=== PATIENT | female | born 1995 | race Caucasian/White ===

== ENCOUNTER 2018-08-11 04:21 | Inpatient (IN) | payer OTHER ==
[~2018-08-11] VITALS: Ht 167.6 cm; Wt 56.2 kg
--- NOTE | ~2018-08-11 | O ---
[facility] [place] [address] OPERATIVE REPORT Name: MAJO ADAMS Room #: 454-P ADM IN M.R.#: [id number] Admission: 08/11/18 ������������������ Attend Phys: Long Gonzalez MD Discharge: ������������������ Date of : [birth year] Report #: [id number] THIS REPORT FOR: //name// CC: Long Santos DATE OF SERVICE: 08/11/2018 PREOPERATIVE DIAGNOSIS: Acute appendicitis. POSTOPERATIVE DIAGNOSIS: Acute appendicitis. OPERATIVE PROCEDURE DONE: Laparoscopic appendectomy. SURGEON: Chirag Moser MD INDICATIONS FOR PROCEDURE: The patient is a 23-year-old female who presented with complaints of 1-day history of right lower quadrant pain. Clinical exam was suggestive of acute appendicitis. A CT scan that was done showed a possible abscess with features of possible perforated appendicitis. DESCRIPTION OF PROCEDURE: After explaining to the patient in detail an informed consent was obtained. The patient was identified in the preoperative holding area. The patient was transferred to the operating room and placed in supine position. Sequential compressive devices were placed for DVT prophylaxis. Appropriate preoperative antibiotics were given. After induction of general anesthesia, the abdomen was prepped and draped in a sterile fashion. Through a left upper quadrant stab incision and using the Veress needle technique pneumoperitoneum was created. Thereafter, I jose alfredo a 1 cm incision on the left flank and using the Optiview technique a 5 mm trocar was introduced through a 2 cm infraumbilical incision, another 12 mm trocar was placed through a suprapubic incision measuring approximately 1 cm and 3 cm above the pubic symphysis another 5 mm trocar was placed. The patient was noted to have approximately about 25-30 mL of serous possibly infected fluid in the pelvis close to the tip of the appendix. There was no abscess that was noted. The appendix appeared mildly inflamed. The mesoappendix was then divided using a MARIZA white load stapler. The appendix was divided using a MARIZA white load stapler at the base. The appendix was then retrieved. Sterile saline irrigation was given after hemostasis was ensured. The abdomen was then desufflated. Incisions were closed with 4-0 Monocryl. Dermabond was applied. The patient was stable at the end of the procedure. The patient was awoken from anesthesia and was transferred to the recovery room in stable condition. ESTIMATED BLOOD LOSS: Minimal. CONDITION OF THE PATIENT: Stable. [address] [address] OPERATIVE REPORT Name: MAJO ADAMS Room #: 454-P [facility] IN M.R.#: [id number] Admission: 08/11/18 ������������������ Attend Phys: Long Gonzalez MD Discharge: ������������������ Date of : [birth year] Report #: [id number] FLUIDS GIVEN: Per anesthesia notes. SPECIMEN SENT: Appendix. COMPLICATIONS: None. ANESTHESIA: General anesthesia. ��������������������������������������������� ���������������������������������������� By: ��������������������������������������������� 1719 1745 Chirag Moser MD /nt
[~2018-08-11 04:21] MED LIST: BACTRIM DS TAB1 EACH PO; BENTYL20 MG PO; CARBAMAZEPINE200 M3; CIPROFLOXACIN500 M1 PO; CLEOCIN HCL300 MG PO; FLEXERIL PO; HYDROXYZINE HCL25 M1; LOXAPINE10 MG PO; MISC; NAPROSYN500 MG PO; NOHOMEMEDICATIONS; PREDNISONE 10 M10 M1; VENTOLIN17 GM; VICODIN 5-5001 EACH PO
[2018-08-11 04:22] VITALS: BP 200/144
[2018-08-11 05:27] LABS: URINE BILIRUBIN NEGATIVE (Negative); URINE BLOOD TRACE (Negative); URINE CLARITY SL CLOUDY; URINE COLOR YELLOW; URINE GLUCOSE-RANDOM* NEGATIVE (Negative); URINE KETONES NEGATIVE (Negative); URINE LEUKOCYTES-REFLEX NEGATIVE (Negative); URINE NITRITE-REFLEX NEGATIVE (Negative); URINE PROTEIN (DIPSTICK) NEGATIVE (Negative); URINE UROBILINOGEN 0.2 E.U./dl (0.2-1.0)
[2018-08-11 05:27] LABS: HEMATOCRIT 42.1 % (37.0-47.0); HEMOGLOBIN 14.5 gm/dL (12.0-15.0); MCH 30.7 pg (26.0-34.0); MCHC 34.4 g/dL (28.0-37.0); MCV 89.1 fL (80.0-100.0); PLATELET COUNT 261 thou/uL (150-400); RBC 4.72 mil/uL (4.20-5.00); RDW 13.2 % (10.5-14.5); WBC 23.9 thou/uL (4.0-11.0)
[2018-08-11 05:35] LABS: CALCIUM 9.1 mg/dL (8.5-10.1); CREATININE 0.9 mg/dL (0.6-1.0); POTASSIUM 3.6 mmol/L (3.5-5.1)
[2018-08-11 05:42] LABS: ALBUMIN 4.1 g/dL (3.4-5.0); TOTAL BILIRUBIN 0.7 mg/dL (<0.1-1.0); TOTAL PROTEIN 6.9 g/dL (6.4-8.2)
[2018-08-11 06:02] LABS: PLATELET ESTIMATE NORMAL
[2018-08-11 07:54] LABS: PROTIME 10.4 Seconds (9.3-11.4)
[2018-08-11 08:11] VITALS: BP 89/56
[2018-08-11 08:15] VITALS: BP 88/37
[2018-08-11 10:00] VITALS: BP 96/47
[2018-08-11 16:40] VITALS: BP 102/57
--- NOTE | 2018-08-11 18:33 | NUR ---
PT A&OX4, VSS, PAIN IN RLQ OF ABDOMEN. PT HAD APPENDECTOMY COMPLETED TODAY. NO SIGNS OF DISTRESS. FAMILY AT BEDSIDE. LAP SITES C/D/I. WILL CONTINUE TO MONITOR
[2018-08-11 20:20] VITALS: BP 101/66
--- NOTE | 2018-08-12 04:23 | NUR ---
Pt. rested quietly at intervals during the night when checked on during frequent rounds. She was given pain meds (see emar) for c/o abdominal pain with some relief noted. Lapsites to abdomen are dry and intact.
[2018-08-12 04:25] VITALS: BP 102/62
[2018-08-12 05:52] LABS: HEMATOCRIT 37.6 % (37.0-47.0); HEMOGLOBIN 12.6 gm/dL (12.0-15.0); MCH 30.5 pg (26.0-34.0); MCHC 33.6 g/dL (28.0-37.0); RBC 4.13 mil/uL (4.20-5.00); RDW 13.3 % (10.5-14.5); WBC 11.5 thou/uL (4.0-11.0)
[2018-08-12 06:04] LABS: CALCIUM 8.7 mg/dL (8.5-10.1); CREATININE 0.7 mg/dL (0.6-1.0); MAGNESIUM 1.9 mg/dL (1.8-2.4); POTASSIUM 3.7 mmol/L (3.5-5.1)
[2018-08-12 07:56] VITALS: BP 105/72
[2018-08-12] MEDS ORDERED: COLACE100 MG PO (13:27)
[2018-08-12] MEDS ORDERED: NORCO 5-325 TA1 EACH PO (13:27)
[2018-08-12 15:36] VITALS: BP 105/72
--- NOTE | 2018-08-12 16:40 | NUR ---
Received awake on bed. Due medications given as prescribed. Pt complained of pain and headache, Dr. Haile informed- due medications given as prescribed. With IVF at Left upper arm, IVF infusing well. Pt with episodes of tachycardia last night as verybalized by the patient and bradycardia this AM- Dr Haile aware, to do EKG- done, Dr Haile informed- Normal SR. Patient seen by Dr. Haile- to discharge patient today. Discharge instructions, prescription and medication care notes given to patient. IVF discontinued. Pt asked for note for 1 week rest as pt verbalized that a doctor told her that she will have doctor's note- called Dr Haile, to ask surgeon to do note, called Dr Moser's office re: note for work.
--- NOTE | 2018-08-13 09:02 | EKG ---
[address] [place] [address] ELECTROCARDIOGRAM REPORT Name: MAJO ADAMS Room #: 454- DIS IN M.R.#: [id number] ������������������ Admission: 08/11/18 ������������������ Attend Phys: Long Gonzalez MD Discharge: 08/12/18 ������������������ Date of : [birth year] Report #: [id number] ����������������������������������������������������������������� [id number] THIS REPORT FOR: //name// [facility] Test Date: 2018-08-12 Test Time: 11:25:44 Pat Name: MAJO ADAMS Department: Room: [facility] Gender: F [employer] Operator: Shad EGAN : 1995 Requested By: Renny Haile Order Number: [id number] MD: Dilip Coelho Measurements Intervals Machias Rate: 50 P: -22 VA: 126 QRS: 59 QRSD: 99 T: 59 QT: 433 QTc: 395 Interpretive Statements Sinus bradycardia Otherwise normal tracing No previous ECG available for comparison Electronically Signed On 08-13-2018 9:02:02 CDT by Dilip Coelho [email or web address] ��������������������������������������������� <ELECTRONICALLY SIGNED> ���������������������������������������� By: Dilip Coelho MD, [facility] ��������������������������������������������� 08/13/18 09 D: [id number] Dilip Coelho MD, FACC /EPI
--- NOTE | 2018-08-14 17:06 | PATH ---
[facility] [place] [address] [address] PATHOLOGY RPT PROCEDURE Name: MAJO MARTEL Room #: 454-P [facility] IN M.R.#: [id number] ������������������ Admission: 08/11/18 ������������������ Date of : [birth year] Discharge: 08/12/18 Report #: [id number] Path Case #: [id number] [facility] Accession Number: [id number] . 01 Material submitted: . appendix - APPENDIX . 01 Clinical history: . Appendicitis . 02 Diagnosis: Appendix, appendectomy: - Marked acute appendicitis along with acute serositis. (IUV:indio; 08/14/2018) QMS/08/14/2018 . 02 Electronically signed: . Vera Blanton MD, Pathologist NPI- [id number] . 01 Gross description: . The specimen is received in formalin, labeled "Majo Martel, appendix" and consists of an appendix measuring 5.0 cm in length and up to 0.5 cm in diameter with mesoappendix lining the entire specimen measuring up to 1.0 cm thick. The margin is closed with a line of sheldon and inked black. The serosa is gary-brown with focal adhesions. Sectioning reveals a pinpoint lumen and no mucosal lesions. The appendix is entirely submitted in A1-A2. (SDY; 08/13/2018) SYU/SYU . 02 Pathologist provided ICD-10: K35.80, K65.8 . 02 CPT . 640677 Specimen Comment: A courtesy copy of this report has been sent to Specimen Comment: [phone], , . Specimen Comment: Report sent to ,DR KIRKLAND / DR FLORIAN Performed at: [address], [place] [id number] MD Michael Jordan MD Phone: [phone] Performed at: [address] [id number] MD Vera Blanton MD Phone: [phone]
== END 2018-08-12 17:35 | disposition home or self-care (01) | DRG 340 ==
LOC: ER 04:21 → EROBS 07:28 → 4W 07:28
PROVIDERS: Emergency Medicine; Surgery; ADMIT Internal Medicine
PROC: 0DTJ4ZZ Resection of Appendix, Percutaneous Endoscopic Approach (ICD-10-PCS; principal; 2018-08-11)
DX: K35.21 Acute appendicitis with generalized peritonitis, with abscess (principal); F17.210 Nicotine dependence, cigarettes, uncomplicated; Z88.0 Allergy status to penicillin; Z79.899 Other long term (current) drug therapy
CPT/HCPCS: 10047; 50010; 50101; 50411; 50555; 50558; 50739; 50740; 51489; 51975; 52265; 52266; 53310; 54118; 56462; 56525; 56526; 62110; 62900; 70005